=== PATIENT | female | born 2000 | race Hispanic/Latino ===

== ENCOUNTER 2023-04-04 10:18 | Outpatient (CLI) | payer BC, SELFPAY ==
--- NOTE | ~2023-04-04 | US_ITS ---
EXAMINATION: US pelvic complete w TV DATE: 04/04/2023 12:01 INDICATION: Pelvic and peroneal pain Comparison:No prior studies for comparison. TECHNIQUE: Multiple endovaginal sonographic images of the pelvis performed. FINDINGS: The uterus measures 6.1 x 6 x 4.1 cm. The endometrial complex measures 7 mm. The right ovary measures 2.4 x 1.1 x 1.6 cm and the left ovary measures 2.3 x 1.6 cm. There are smal l follicles in each ovary. Normal doppler signal in both ovaries. There is no free fluid in the pelvis. There are no abnormal masses seen on either side. IMPRESSION: 1. Unremarkable pelvic ultrasound. Reviewed, dictated and finalized at location L.
== END 2023-04-04 10:19 | disposition home or self-care (01) ==
PROVIDERS: Visit Provider Registered Nurse
DX: N83.209 Unspecified ovarian cyst, unspecified side (principal); R10.2 Pelvic and perineal pain
CPT/HCPCS: 76830; 76856

== ENCOUNTER 2024-02-25 12:33 | Emergency (ER) | payer OTHER, SELFPAY ==
--- NOTE | ~2024-02-25 | CT_ITS ---
EXAMINATION: CT brain wo con DATE: 02/25/2024 15:51 INDICATION: New headache. TECHNIQUE: Computed tomography (CT) of the head was performed without intravenous contrast. The mA wa s adjusted according to patient size. Iterative reconstruction technique was employed. The dose-lengt h product was 605.33 mGy-cm. COMPARISON: None FINDINGS: There is no intracranial hemorrhage, acute infarction, or abnormal intracranial mass lesion . The ventricles are normal in size. The mastoid air cells are normal. The paranasal sinuses are marga r. IMPRESSION: 1. Normal brain. Reviewed, dictated and finalized at location E. IMPRESSION: 1. Normal brain.
[2024-02-25 13:23] VITALS: BP 136/82; PULSE 94; RESP 14; TEMP 36.9; O2SAT 99
[2024-02-25 15:21] VITALS: BP 138/95; PULSE 91; RESP 18; TEMP 36.6; O2SAT 100
--- NOTE | 2024-02-25 15:25 | ED.HA ---
HPI - Headache General Chief Complaint: Headache Stated Complaint: headache, nausea since last noc Time Seen by Provider: 02/25/24 15:18 Source: patient Mode of arrival: ambulatory Limitations: no limitations History of Present Illness HPI Narrative: This is a 23-year-old female that presents to the emergency department for a headache. Reports that has been ongoing constantly since yesterday. She has taken a family member's migraine pill with little relief. They are unsure what the medication is. Reports associated nausea. Reports the pain is in the back of her head and achy. Denies fevers, vomiting, vision changes, numbness, weakness. Related Data Allergies Allergy/AdvReac Type Severity Reaction Status Date / Time No Known Allergies Allergy Verified 09/22/23 08:29 Review of Systems Review of Systems: CONSTITUTIONAL: Denies fever EYES: Denies visual changes GASTROINTESTINAL: Denies vomiting NEUROLOGIC: Denies numbness, or weakness. All systems reviewed & are unremarkable except as noted in HPI and below PMFSH Past Medical History Medical History Dysmenorrhea, unspecified Ovarian cyst Surgical History Surgical History History of foot surgery Left Foot Family History Family History Grandparent Diabetes mellitus Social History Social History Smoking status: Never smoker Alcohol intake: current Alcohol use details: Rarely Substance use: never Lack of Transportation: No Lack of Food: Never True Current Housing: I Have Housing Concerned About Future Housing: No Difficulty Paying Gas/Electric Bills: No Difficulty Paying for Meds: No Currently Unemployed: No Education: High School Diploma/GED Difficulty w/ Childcare or Family Care: No Living arrangements: with family Occupation/Education: occupation Gender identity (if verbalized by the patient): Female Sexual Orientation (if Verbalized by the Patient): Straight or Heterosexual Spiritual care concerns: No Exam Narrative: GENERAL: Well-appearing, well-nourished, and in no acute distress. HEAD: Normocephalic, atraumatic. EYES: PERRLA and EOMI. ENT: Nares clear, no rhinorrhea or epistaxis. Mucous membranes moist. Oropharynx without tonsillar hypertrophy exudate or other lesions. Bilateral TMs pearly hays non-bulging NECK: Supple. No adenopathy or masses. normal range of motion CHEST: Clear to auscultation. No respiratory distress. No wheezes rales or rhonchi HEART: Regular rate and rhythm. No murmur heard. Normal peripheral pulses. EXTREMITIES: Normal range of motion. No edema. strength equal in bilateral upper and lower extremities (5/5) SKIN: Warm, dry, no rash. NEURO: No focal deficits. Alert and oriented x3. Cranial nerves 2-12 grossly intact PSYCH: Normal mood and affect Course Course Emergency Course: patient updated on her workup and agrees with plan of care. resting comfortably Vital Signs Vital signs: Vital Signs Temperature 98.4 F 02/25/24 13:23 Pulse Rate 94 02/25/24 13:23 Respiratory Rate 14 02/25/24 13:23 Blood Pressure 136/82 02/25/24 13:23 Pulse Oximetry 99 02/25/24 13:23 Oxygen Delivery Room Air 02/25/24 13:23 Temperature 97.8 F 02/25/24 15:21 Pulse Rate 91 02/25/24 15:21 Respiratory Rate 18 02/25/24 15:21 Blood Pressure 138/95 H 02/25/24 15:21 Pulse Oximetry 100 02/25/24 15:21 Oxygen Delivery Room Air 02/25/24 13:23 MDM - Headache MDM Narrative Medical decision making narrative: Patient presents to the emergency department for new headaches ongoing over the last couple of days. She is afebrile and nontoxic appearing. Her vitals are stable. She is neurologically intact. CT brain is normal. Patient was updated on her workup and a
[2024-02-25] MEDS: ACETAMINOPHEN 500 MG TABLET 1000 MG PO (15:57)
[2024-02-25] MEDS: KETOROLAC 15 MG/ML VIAL (*BKC) IV PUSH (15:59)
[2024-02-25] MEDS: SODIUM CHLORIDE 0.9% IV 1,000 ML 999 ML IV CONT (15:59)
[2024-02-25] MEDS: diphenhydrAMINE HCl INJ 50 MG/ML VIAL 25 MG IV PUSH (16:01)
[2024-02-25] MEDS: METOCLOPRAMIDE HCL INJ 10 MG/2 ML VIAL IV PUSH (16:02)
[2024-02-25 17:27] VITALS: BP 124/84; PULSE 84; RESP 16; TEMP 36.4; O2SAT 100
== END 2024-02-25 17:28 | disposition home or self-care (01) ==
PROVIDERS: Emergency Provider Physician Assistant; PCP Emergency Medicine
DX: R51.9 Headache, unspecified (principal)
CPT/HCPCS: 70450; 96361; 96374; 96375; 99284; A9270; J1200; J1885; J2765; J7030